=== PATIENT | female | born 1980 | race Caucasian/White ===

== ENCOUNTER 2016-10-24 10:00 | Emergency (ER) | payer BC ==
[~2016-10-24] VITALS: Ht 167.6 cm; Wt 96.6 kg
[2016-10-24 10:07] VITALS: BP 144/76
[2016-10-24] MEDS ORDERED: LOSA25TA8 (10:12)
[2016-10-24] MEDS ORDERED: PROA1AER PO (10:12)
[2016-10-24] MEDS ORDERED: FLUT1SPR2 (10:12)
[2016-10-24] MEDS ORDERED: SERT50TA PO (10:12)
[2016-10-24] MEDS ORDERED: ADV100INH INH (10:12)
[2016-10-24] MEDS ORDERED: MONT10TA2 PO (10:12)
== END 2016-10-24 11:23 | disposition left against medical advice (07) ==
LOC: M ED 11:14
DX: J45.901 Unspecified asthma with (acute) exacerbation (principal); Z53.21 Procedure and treatment not carried out due to patient leaving prior to being seen by health care provider

== ENCOUNTER → 2016-11-04 | Outpatient (REF) | payer BC ==
[~2016-11-04] MED LIST: ADV100INH INH; FLUT1SPR2; LOSA25TA8; MONT10TA2 PO; PROA1AER PO; SERT50TA PO
== END ==
LOC: M LAB REF 12:38
PROVIDERS: ATTEND Physician Assistant
DX: J02.9 Acute pharyngitis, unspecified (principal)

== ENCOUNTER 2016-11-15 10:27 | Emergency (ER) | payer BC ==
[~2016-11-15] VITALS: Ht 167.6 cm; Wt 91.2 kg
[2016-11-15 10:28] VITALS: BP 168/110
[2016-11-15] MEDS ORDERED: AUGM875T27 PO (10:39)
[2016-11-15] MEDS ORDERED: MAGN500C PO (10:39)
[2016-11-15 11:52] LABS: BASO # 0.1 K/mm3 (0.0-0.2); BASO % 0.4 % (0.0-1.0); EOS # 0.2 K/mm3 (0.0-0.50); EOS % 1.4 % (0.0-3.0); LARGE UNSTAINED CELL # 0.2 K/mm3 (0.0-0.4); LARGE UNSTAINED CELL % 1.6 % (0.0-4.0); LYMPH # 2.5 K/mm3 (1.5-4.5); LYMPH % 15.2 % (24.0-44.0); MEAN CORPUSCULAR HEMOGLOBIN 28.9 pg (27.0-33.0); MEAN CORPUSCULAR HGB CONC 33.3 g/dl (32.0-36.5); MEAN CORPUSCULAR VOLUME 86.8 fl (80.0-96.0); MONO # 0.8 K/mm3 (0.0-0.8); MONO % 5.4 % (0.0-5.0); NEUTROPHILS # 11.4 K/mm3 (1.8-7.7); NEUTROPHILS % 76.1 % (36.0-66.0); PLATELET COUNT, AUTOMATED 327 k/mm3 (150-450); WHITE BLOOD COUNT 14.1 K/mm3 (4.0-10.0)
[2016-11-15 12:09] LABS: ANION GAP 8 MEQ/L (8-16); BLOOD UREA NITROGEN 6 MG/DL (7-18); CARBON DIOXIDE LEVEL 26 MEQ/L (21-32); CHLORIDE LEVEL 104 MEQ/L (98-107); CREATININE FOR GFR 0.74 MG/DL (0.55-1.02); GLOMERULAR FILTRATION RATE > 60.0 (>60); GLUCOSE, FASTING 116 MG/DL (70-105); SODIUM LEVEL 138 MEQ/L (136-145)
[2016-11-15 12:15] LABS: HCG, SERUM QUANTITATIVE < 1.0 MIU/ML
--- NOTE | 2016-11-15 12:21 | REP ---
Clinical: Chest pain . Comparison: 06/14/2011 . Technique: PA and lateral. Findings: The mediastinum and cardiac silhouette are normal. The lung gay are clear and without acute consolidation, effusion, or pneumothorax. The skeletal structures are intact and normal. Impression: 1. No acute cardiopulmonary process. Signed by Jared Germain MD 11/15/2016 12:12 P
--- NOTE | 2016-11-15 16:27 | ECGEPIP ---
Stationary ECG Study [facility] - ED Test Date: 2016-11-15 Pat Name: DIOGENES GONZALEZ Department: Room: - Gender: F Cardiovascular Disease Specialist: fidencio : 1980 Requested By: ALPHONSE Morin PA-C Order Number: [id number] Reading MD: Compa Kong Measurements Intervals [place] Rate: 95 P: 43 MT: 116 QRS: 21 QRSD: 85 T: 37 QT: 339 QTc: 428 Interpretive Statements SINUS RHYTHM WITH SHORT MT INTERVAL POSSIBLE LEFT ATRIAL ENLARGEMENT NO PRIORS Electronically Signed On 11-15-2016 16:26:47 EDT by Compa Kong
== END 2016-11-15 12:53 | disposition home or self-care (01) ==
LOC: M ED 11:25
DX: B37.0 Candidal stomatitis (principal); R07.9 Chest pain, unspecified; I10 Essential (primary) hypertension; J45.909 Unspecified asthma, uncomplicated; F41.9 Anxiety disorder, unspecified; F17.200 Nicotine dependence, unspecified, uncomplicated; Z82.49 Family history of ischemic heart disease and other diseases of the circulatory system; Z79.899 Other long term (current) drug therapy; Z88.1 Allergy status to other antibiotic agents

== ENCOUNTER → 2017-05-06 | Outpatient (CLI) | payer BC ==
[~2017-05-06] MED LIST changes: +AUGM875T28 PO; +MAGN500C PO; -PROA1AER PO; +PROAAER10 PO
--- NOTE | 2017-05-08 15:56 | SLEEPHOME ---
DATE OF PROCEDURE: 05/06/2017 ORDERED BY: Chelsea Koenig. Diagnostic home sleep testing was performed due to concern for the obstructive sleep apnea syndrome in this patient with a history of excessive somnolence and nonrestorative sleep. For testing a NOX-T3 respiratory monitoring device was used Continuous record was made of pulse, oxygen saturation, airflow, chest and abdominal strain and body position. 10 hours and 16 minutes of data were reviewed. Of these, 8 hours and 3 minutes were marked as time in bed. During the interval marked time in bed there were 95 respiratory events were identified of 10 seconds in duration or greater for a respiratory event index of 11.8. The events were primary obstructive. Baseline pulse rate was 71. Pulse rate range 59 to 100. Baseline saturation was 94%. Lowest oxygen saturation 82%. Testing was performed in both the supine and non-supine positions. IMPRESSION: Abnormal home sleep testing with repetitive respiratory events and oxygen desaturations to 82% with a respiratory event index of 11.8 is consistent with the obstructive sleep apnea syndrome. RECOMMENDATIONS: The patient should be encouraged to undergo formal sleep evaluation and in laboratory pressure titration.
== END ==
LOC: M SLEEP HO 08:01
PROVIDERS: ATTEND Nurse Practitioner Adult Health
DX: G47.30 Sleep apnea, unspecified (principal)

== ENCOUNTER → 2018-05-06 | Outpatient (REF) | payer BC | LOC: M LAB REF 19:04 | DX: D23.11 Other benign neoplasm of skin of right eyelid, including canthus (principal) | CPT/HCPCS: 88305 ==

== ENCOUNTER → 2021-03-23 | Outpatient (REF) | payer BC ==
[~2021-03-23] MED LIST changes: +ATOR1TAB19 PO; +BREO1INH3 INH; +CLIN1GEL22 TOP; +IBUP200C25 PO; +LOSA25TA13; -LOSA25TA8; +MAGN500C2 PO; -MONT10TA2 PO; +MONT10TA97 PO; +PARO20TA3 PO; +SERT-141 PO; -SERT50TA PO; +VALS40TA9 PO
== END ==
LOC: M LAB REF 14:37
PROVIDERS: ATTEND Surgery
DX: D23.61 Other benign neoplasm of skin of right upper limb, including shoulder (principal); D23.5 Other benign neoplasm of skin of trunk

== ENCOUNTER → 2021-04-19 | Outpatient (REF) | payer BC ==
[~2021-04-19] MED LIST changes: -LOSA25TA13; +LOSA25TA14; +MONT10TA10 PO; -MONT10TA97 PO
== END ==
LOC: M LAB REF 19:12
PROVIDERS: ATTEND Surgery
DX: D48.5 Neoplasm of uncertain behavior of skin (principal); D17.0 Benign lipomatous neoplasm of skin and subcutaneous tissue of head, face and neck

== ENCOUNTER → 2021-05-28 | Outpatient (CLI) | payer BC ==
--- NOTE | 2021-05-30 14:49 | REP ---
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 Non corrected whole-body images were also reviewed. FINDINGS: There is no evidence of abnormal hypermetabolic activity seen in the neck, chest, abdomen, or pelvis. Additionally, no abnormal hypermetabolism is seen in the skin. IMPRESSION: No discernible abnormal hypermetabolic activity is identified. <Electronically signed by Kedar Joyner > 05/30/21 [id number]
== END ==
LOC: M PLARAD 13:06
DX: D21.9 Benign neoplasm of connective and other soft tissue, unspecified (principal)
CPT/HCPCS: 78816; A9552

== ENCOUNTER → 2022-07-16 | Outpatient (CLI) | payer BC ==
[~2022-07-16] MED LIST changes: +LOSA25TA13; -LOSA25TA14; -MONT10TA10 PO; +MONT10TA97 PO
== END ==
LOC: M WHC 08:53
PROVIDERS: ATTEND Obstetrics & Gynecology
DX: Z12.31 Encounter for screening mammogram for malignant neoplasm of breast (principal); N63.11 Unspecified lump in the right breast, upper outer quadrant; N63.21 Unspecified lump in the left breast, upper outer quadrant

== ENCOUNTER → 2022-07-16 | Outpatient (CLI) | payer BC | LOC: M WHC 08:51 | PROVIDERS: ATTEND Surgery | DX: R22.1 Localized swelling, mass and lump, neck (principal) ==

== ENCOUNTER → 2022-08-14 | Outpatient (CLI) | payer BC | LOC: M WHC 09:49 | PROVIDERS: ATTEND Obstetrics & Gynecology | DX: R92.2 Inconclusive mammogram (principal); N60.11 Diffuse cystic mastopathy of right breast; N63.24 Unspecified lump in the left breast, lower inner quadrant | CPT/HCPCS: 76642; 77066; G0279 ==

== ENCOUNTER → 2022-12-19 | Outpatient (CLI) | payer BC | LOC: M WUC 09:35 | PROVIDERS: ATTEND Student in an Organized Health Care Education/Training Program | DX: M25.522 Pain in left elbow (principal); M25.532 Pain in left wrist; M25.422 Effusion, left elbow; S52.122A Displaced fracture of head of left radius, initial encounter for closed fracture; X58.XXXA Exposure to other specified factors, initial encounter; Y92.9 Unspecified place or not applicable; Y93.9 Activity, unspecified; Y99.9 Unspecified external cause status ==

== ENCOUNTER → 2023-01-16 | Outpatient (CLI) | payer BC | LOC: M RAD 11:27 | PROVIDERS: ATTEND Physician Assistant | DX: S52.125D Nondisplaced fracture of head of left radius, subsequent encounter for closed fracture with routine healing (principal) ==

== ENCOUNTER → 2023-01-27 | Outpatient (CLI) | payer BC | LOC: M WHC 12:55 | PROVIDERS: ATTEND Advanced Practice Midwife | DX: R92.2 Inconclusive mammogram (principal); N63.41 Unspecified lump in right breast, subareolar | CPT/HCPCS: 76642; 77065; G0279 ==

== ENCOUNTER → 2023-02-06 | Outpatient (REF) | payer BC | LOC: M LAB REF 16:26 | PROVIDERS: ATTEND Internal Medicine | DX: Z11.59 Encounter for screening for other viral diseases (principal) ==

== ENCOUNTER → 2023-02-21 | Outpatient (REF) | payer BC | LOC: M LAB REF 12:14 | PROVIDERS: ATTEND Internal Medicine | DX: R53.83 Other fatigue (principal); M79.10 Myalgia, unspecified site; Z11.59 Encounter for screening for other viral diseases ==

== ENCOUNTER → 2023-08-08 | Outpatient (CLI) | payer BC, SELFPAY | LOC: M WHC 13:56 | PROVIDERS: ATTEND Obstetrics & Gynecology | DX: Z12.31 Encounter for screening mammogram for malignant neoplasm of breast (principal); Z53.9 Procedure and treatment not carried out, unspecified reason ==

== ENCOUNTER → 2023-09-22 | Outpatient (CLI) | payer BC | LOC: M WHC 13:38 | PROVIDERS: ATTEND Obstetrics & Gynecology | DX: Z12.31 Encounter for screening mammogram for malignant neoplasm of breast (principal) ==

== ENCOUNTER 2023-11-17 12:42 | Observation (INO) | payer BC ==
[~2023-11-17] VITALS: Ht 170.2 cm; Wt 78.6 kg
[2023-11-17] MEDS ORDERED: METO1TAB32 PO (13:13)
[2023-11-17] MEDS ORDERED: PRAS10TA2 PO (13:13)
[2023-11-17] MEDS ORDERED: NITR0.4S14 SL (13:13)
[2023-11-17] MEDS ORDERED: ATOR80TA59 PO (13:13)
[2023-11-17] MEDS ORDERED: ASPI-226 PO (13:13)
[2023-11-17] MEDS ORDERED: FLUT1BLS5 INH (13:13)
[2023-11-17 13:51] LABS: BASO % 0.4 % (0.0-1.0); EOS # 0.2 10^3/uL (0.0-0.5); EOS % 1.6 % (0.0-3.0); HEMATOCRIT 39.2 % (36.0-47.0); LYMPH # 2.2 10^3/uL (1.5-5.0); LYMPH % 23.1 % (24.0-44.0); MEAN CORPUSCULAR HGB CONC 33.2 g/dl (32.0-36.5); MEAN CORPUSCULAR VOLUME 93.6 fl (80.0-96.0); MONO % 10.3 % (2.0-8.0); NEUTROPHILS # 6.1 10^3/uL (1.5-8.5); NEUTROPHILS % 64.2 % (36.0-66.0); PLATELET COUNT, AUTOMATED 282 10^3/uL (150-450); RED BLOOD COUNT 4.19 10^6/uL (4.00-5.40); WHITE BLOOD COUNT 9.6 10^3/uL (4.0-10.0)
[2023-11-17 14:06] LABS: D-DIMER QUANT 1.49 ug/mL (<0.5); INR 1.06; PROTHROMBIN TIME 13.5 SECONDS (12.5-14.5)
[2023-11-17 14:22] LABS: LIPASE 31 U/L (12-53)
[2023-11-17 14:25] LABS: ALBUMIN 3.8 G/DL (3.2-5.2); ALKALINE PHOSPHATASE 84 U/L (46-116); ALT/SGPT 22 U/L (7.0-40); AST/SGOT 12 U/L (<34); BILIRUBIN,DIRECT 0.2 MG/DL (<0.4); BILIRUBIN,TOTAL 0.3 MG/DL (0.3-1.2); BLOOD UREA NITROGEN 11 MG/DL (9-23); CALCIUM LEVEL 9.3 MG/DL (8.5-10.1); CARBON DIOXIDE LEVEL 28 MMOL/L (20-31); CHLORIDE LEVEL 108 MMOL/L (98-107); CK-MB VALUE MASS < 1.0 NG/ML (<3.6); CREATININE FOR GFR 0.67 MG/DL (0.55-1.30); GLOMERULAR FILTRATION RATE > 60.0 (>58); GLUCOSE, FASTING 96 MG/DL (60-100); POTASSIUM SERUM 3.9 MMOL/L (3.5-5.1); SODIUM LEVEL 140 MMOL/L (136-145); TOTAL PROTEIN 6.8 G/DL (5.7-8.2)
[2023-11-17] MEDS ORDERED: ISOVUE-370 76% 100ML VIAL As Ordered ONE (14:26)
[2023-11-17 14:28] LABS: CPK CREATINE PHOSPHOKINASE 52 U/L (34-145); MB/CK RELATIVE INDEX 1.92 (< OR =4)
[2023-11-17] MEDS: NS 1,000 ML IV ONE (14:51)
[2023-11-17 15:38] LABS: CK-MB VALUE MASS < 1.0 NG/ML (<3.6)
[2023-11-17 15:41] LABS: CPK CREATINE PHOSPHOKINASE 53 U/L (34-145); MB/CK RELATIVE INDEX 1.88 (< OR =4)
[2023-11-17] MEDS ORDERED: NICO14DI6 TD (17:57)
[2023-11-17] MEDS ORDERED: HOME MED LIST COMPLETE! XX SCH (18:00)
[2023-11-17] MEDS ORDERED: NITROGLYCERIN 0.4MG SUBL TABLET SL PRN (18:20)
[2023-11-17] MEDS: ADVAIR HFA 115/21MCG INHALER INH SCH (19:49)
[2023-11-17] MEDS: MONTELUKAST 10 MG TAB PO SCH (21:27)
[2023-11-17 21:42] VITALS: BP 128/80; TEMP 98.3; O2SAT 99
[2023-11-18 04:00] VITALS: BP 131/63; TEMP 97.8; O2SAT 99
[2023-11-18 05:40] LABS: HEMATOCRIT 35.6 % (36.0-47.0); HEMOGLOBIN 11.7 g/dl (12.0-15.5); MEAN CORPUSCULAR HEMOGLOBIN 31.1 pg (27.0-33.0); MEAN CORPUSCULAR HGB CONC 32.9 g/dl (32.0-36.5); MEAN CORPUSCULAR VOLUME 94.7 fl (80.0-96.0); PLATELET COUNT, AUTOMATED 245 10^3/uL (150-450); RED BLOOD COUNT 3.76 10^6/uL (4.00-5.40); WHITE BLOOD COUNT 8.6 10^3/uL (4.0-10.0)
[2023-11-18 06:15] LABS: CPK CREATINE PHOSPHOKINASE 78 U/L (34-145)
[2023-11-18 06:23] LABS: ALBUMIN 3.1 G/DL (3.2-5.2); ALKALINE PHOSPHATASE 72 U/L (46-116); ALT/SGPT 17 U/L (7.0-40); AST/SGOT 14 U/L (<34); BILIRUBIN,TOTAL 0.2 MG/DL (0.3-1.2); BLOOD UREA NITROGEN 9 MG/DL (9-23); CALCIUM LEVEL 8.3 MG/DL (8.5-10.1); CARBON DIOXIDE LEVEL 28 MMOL/L (20-31); CHLORIDE LEVEL 108 MMOL/L (98-107); CK-MB VALUE MASS < 1.0 NG/ML (<3.6); CREATININE FOR GFR 0.69 MG/DL (0.55-1.30); GLOMERULAR FILTRATION RATE > 60.0 (>58); GLUCOSE, FASTING 90 MG/DL (60-100); MB/CK RELATIVE INDEX 1.28 (< OR =4); POTASSIUM SERUM 3.6 MMOL/L (3.5-5.1); SODIUM LEVEL 142 MMOL/L (136-145); TOTAL PROTEIN 5.7 G/DL (5.7-8.2)
[2023-11-18 08:00] VITALS: BP 138/62; TEMP 97
[2023-11-18] MEDS: NICOTINE 14 MG/24 HR TRANSDERMAL TD SCH (09:28)
[2023-11-18] MEDS: ACETAMINOPHEN TAB 650MG DOSE (2X325MG) PO PRN (09:29)
[2023-11-18] MEDS: ASPIRIN 81MG ENTERIC TABLET PO SCH (09:29)
[2023-11-18] MEDS: ATORVASTATIN 20 MG TAB PO SCH (09:29)
[2023-11-18 09:30] VITALS: BP 138/62
[2023-11-18] MEDS: VALSARTAN 40MG TABLET (DIOVAN) PO SCH (09:30)
[2023-11-18] MEDS: METOPROLOL SUCC *XL* 12.5MG PER 1/2 TAB (TopROL *XL*) PO SCH (09:30)
[2023-11-18] MEDS: PRASUGREL 10 MG PO SCH (10:02)
[2023-11-18 19:52] VITALS: BP 127/60; TEMP 98.3; O2SAT 98
[2023-11-18 20:54] VITALS: BP 104/53; TEMP 97.6; O2SAT 97
[2023-11-19 00:15] VITALS: BP 108/54; TEMP 97.7; O2SAT 100
[2023-11-19 03:44] VITALS: BP 122/69; TEMP 97.2; O2SAT 96
[2023-11-19 08:00] VITALS: BP 129/56; TEMP 97.4; O2SAT 99
== END 2023-11-19 12:09 | disposition home or self-care (01) ==
LOC: M ED 14:04 → M ED INP 14:05 → M PCU 21:39
PROVIDERS: ADMIT Internal Medicine; ATTEND Internal Medicine
DX: R07.89 Other chest pain (principal); I25.10 Atherosclerotic heart disease of native coronary artery without angina pectoris; I25.2 Old myocardial infarction; Z98.61 Coronary angioplasty status; I10 Essential (primary) hypertension; E78.5 Hyperlipidemia, unspecified; J45.909 Unspecified asthma, uncomplicated; G47.33 Obstructive sleep apnea (adult) (pediatric); Z87.891 Personal history of nicotine dependence; Z86.79 Personal history of other diseases of the circulatory system; Z79.01 Long term (current) use of anticoagulants; Z79.82 Long term (current) use of aspirin; Z88.1 Allergy status to other antibiotic agents; Z79.899 Other long term (current) drug therapy
CPT/HCPCS: 36415; 71045; 71275; 80047; 80048; 80053; 80076; 82550; 82553; 83690; 84484; 85025; 85027; 85379; 85610; 87635; 93005; 93041; 93306; 93971; 94640; 94760; 96374; 99285; Q9967

== ENCOUNTER → 2023-11-26 | Outpatient (REF) | payer BC ==
[~2023-11-26] MED LIST changes: +ASPI-226 PO; +ATOR80TA59 PO; +FLUT1BLS5 INH; +METO1TAB32 PO; +NICO14DI6 TD; +NITR0.4S14 SL; +PRAS10TA2 PO
== END ==
LOC: M LAB REF 16:22
PROVIDERS: ATTEND Internal Medicine
DX: J02.0 Streptococcal pharyngitis (principal)

== ENCOUNTER → 2023-12-12 | Outpatient (CLI) | payer BC ==
[2023-12-12 10:18] LABS: BASO % 0.2 % (0.0-1.0); EOS # 0.2 10^3/uL (0.0-0.5); EOS % 2.1 % (0.0-3.0); HEMATOCRIT 37.9 % (36.0-47.0); HEMOGLOBIN 12.3 g/dl (12.0-15.5); LYMPH # 1.6 10^3/uL (1.5-5.0); LYMPH % 19.9 % (24.0-44.0); MEAN CORPUSCULAR HEMOGLOBIN 30.8 pg (27.0-33.0); MEAN CORPUSCULAR HGB CONC 32.5 g/dl (32.0-36.5); MEAN CORPUSCULAR VOLUME 94.8 fl (80.0-96.0); MONO % 11.7 % (2.0-8.0); NEUTROPHILS # 5.4 10^3/uL (1.5-8.5); NEUTROPHILS % 65.7 % (36.0-66.0); PLATELET COUNT, AUTOMATED 292 10^3/uL (150-450); WHITE BLOOD COUNT 8.2 10^3/uL (4.0-10.0)
[2023-12-12 10:31] LABS: INR 1.02; PARTIAL THROMBOPLASTIN TIME 34.2 SECONDS (24.8-34.2); PROTHROMBIN TIME 13.1 SECONDS (12.5-14.5)
[2023-12-12 10:44] LABS: BLOOD UREA NITROGEN 8 MG/DL (9-23); CALCIUM LEVEL 9.5 MG/DL (8.5-10.1); CARBON DIOXIDE LEVEL 29 MMOL/L (20-31); CHLORIDE LEVEL 110 MMOL/L (98-107); GLOMERULAR FILTRATION RATE > 60.0 (>58); GLUCOSE, FASTING 70 MG/DL (60-100); POTASSIUM SERUM 4.1 MMOL/L (3.5-5.1); SODIUM LEVEL 141 MMOL/L (136-145)
== END ==
LOC: M LAB 09:30
PROVIDERS: ATTEND Internal Medicine
DX: Z01.812 Encounter for preprocedural laboratory examination (principal)

== ENCOUNTER 2023-12-20 13:05 | Emergency (ER) | payer BC ==
[~2023-12-20] VITALS: Ht 167.6 cm; Wt 80.1 kg
[2023-12-20 13:50] LABS: BASO % 0.2 % (0.0-1.0); EOS # 0.1 10^3/uL (0.0-0.5); EOS % 1.2 % (0.0-3.0); HEMATOCRIT 38.5 % (36.0-47.0); HEMOGLOBIN 12.8 g/dl (12.0-15.5); LYMPH # 2.1 10^3/uL (1.5-5.0); LYMPH % 20.8 % (24.0-44.0); MEAN CORPUSCULAR HEMOGLOBIN 30.8 pg (27.0-33.0); MEAN CORPUSCULAR HGB CONC 33.2 g/dl (32.0-36.5); MEAN CORPUSCULAR VOLUME 92.8 fl (80.0-96.0); MONO % 9.5 % (2.0-8.0); NEUTROPHILS # 6.9 10^3/uL (1.5-8.5); PLATELET COUNT, AUTOMATED 292 10^3/uL (150-450); RED BLOOD COUNT 4.15 10^6/uL (4.00-5.40); WHITE BLOOD COUNT 10.1 10^3/uL (4.0-10.0)
[2023-12-20 14:10] LABS: CK-MB VALUE MASS < 1.0 NG/ML (<3.6)
[2023-12-20 14:12] LABS: CPK CREATINE PHOSPHOKINASE 50 U/L (34-145)
[2023-12-20 14:14] LABS: ALBUMIN 3.8 G/DL (3.2-5.2); ALKALINE PHOSPHATASE 92 U/L (46-116); ALT/SGPT 19 U/L (7.0-40); AST/SGOT 12 U/L (<34); BILIRUBIN,DIRECT < 0.1 MG/DL (<0.4); BILIRUBIN,TOTAL 0.3 MG/DL (0.3-1.2); BLOOD UREA NITROGEN 7 MG/DL (9-23); CARBON DIOXIDE LEVEL 26 MMOL/L (20-31); CHLORIDE LEVEL 109 MMOL/L (98-107); CREATININE FOR GFR 0.64 MG/DL (0.55-1.30); GLOMERULAR FILTRATION RATE > 60.0 (>58); GLUCOSE, FASTING 104 MG/DL (60-100); POTASSIUM SERUM 3.9 MMOL/L (3.5-5.1); SODIUM LEVEL 143 MMOL/L (136-145); TOTAL PROTEIN 6.7 G/DL (5.7-8.2)
[2023-12-20 14:55] LABS: MAGNESIUM LEVEL 1.8 MG/DL (1.8-2.4)
[2023-12-20 15:00] LABS: THYROID STIMULATING HORMONE 0.355 uIU/ML (0.55-4.78)
[2023-12-20 15:10] LABS: CK-MB VALUE MASS < 1.0 NG/ML (<3.6)
[2023-12-20 15:11] LABS: CPK CREATINE PHOSPHOKINASE 45 U/L (34-145); MB/CK RELATIVE INDEX 2.22 (< OR =4)
[2023-12-20 15:14] LABS: HCG, SERUM QUALITATIVE NEGATIVE (NEGATIVE)
[2023-12-20] MEDS ORDERED: ISOVUE-370 76% 100ML VIAL As Ordered ONE (15:45)
[2023-12-20] MEDS ORDERED: HOME MED LIST COMPLETE! XX SCH (16:50)
[2023-12-20] MEDS ORDERED: PRED20TA PO (17:17)
[2023-12-20] MEDS: predniSONE 20 MG TAB PO ONE (17:29)
[2023-12-20 18:15] VITALS: BP 118/69; TEMP 97.5; O2SAT 99
== END 2023-12-20 18:33 | disposition home or self-care (01) ==
LOC: M ED 13:05
DX: R07.9 Chest pain, unspecified (principal); I10 Essential (primary) hypertension; E78.5 Hyperlipidemia, unspecified; I25.2 Old myocardial infarction; G47.33 Obstructive sleep apnea (adult) (pediatric); F17.200 Nicotine dependence, unspecified, uncomplicated; Z86.79 Personal history of other diseases of the circulatory system; Z88.1 Allergy status to other antibiotic agents; Z79.82 Long term (current) use of aspirin; Z79.02 Long term (current) use of antithrombotics/antiplatelets; Z79.52 Long term (current) use of systemic steroids; Z79.899 Other long term (current) drug therapy
CPT/HCPCS: 36415; 71045; 71275; 80048; 80076; 82550; 82553; 83735; 84443; 84484; 84703; 85025; 93005; 93041; 94760; 99285; J7512; Q9967

== ENCOUNTER → 2024-02-17 | Outpatient (CLI) | payer BC ==
[~2024-02-17] MED LIST changes: +PRED20TA PO
[2024-02-17 10:46] LABS: BASO % 0.2 % (0.0-1.0); EOS # 0.2 10^3/uL (0.0-0.5); EOS % 1.8 % (0.0-3.0); HEMATOCRIT 38.7 % (36.0-47.0); LYMPH # 2.2 10^3/uL (1.5-5.0); MEAN CORPUSCULAR HEMOGLOBIN 29.4 pg (27.0-33.0); MEAN CORPUSCULAR VOLUME 94.9 fl (80.0-96.0); MONO % 12.3 % (2.0-8.0); NEUTROPHILS # 4.8 10^3/uL (1.5-8.5); NEUTROPHILS % 58.3 % (36.0-66.0); PLATELET COUNT, AUTOMATED 275 10^3/uL (150-450); RED BLOOD COUNT 4.08 10^6/uL (4.00-5.40); WHITE BLOOD COUNT 8.2 10^3/uL (4.0-10.0)
[2024-02-17 11:13] LABS: THYROID STIMULATING HORMONE 0.607 uIU/ML (0.55-4.78)
[2024-02-17 11:14] LABS: CPK CREATINE PHOSPHOKINASE 52 U/L (34-145)
[2024-02-17 11:15] LABS: ALBUMIN 3.5 G/DL (3.2-5.2); ALKALINE PHOSPHATASE 78 U/L (46-116); ALT/SGPT 15 U/L (7.0-40); AST/SGOT < 8 U/L (<34); BILIRUBIN,TOTAL 0.5 MG/DL (0.3-1.2); BLOOD UREA NITROGEN 9 MG/DL (9-23); CALCIUM LEVEL 8.6 MG/DL (8.5-10.1); CARBON DIOXIDE LEVEL 29 MMOL/L (20-31); CHLORIDE LEVEL 109 MMOL/L (98-107); CHOLESTEROL LEVEL 115 MG/DL (<200); CHOLESTEROL RISK RATIO 3.28 (<5); CREATININE FOR GFR 0.74 MG/DL (0.55-1.30); GLOMERULAR FILTRATION RATE > 60.0 (>58); GLUCOSE, FASTING 95 MG/DL (60-100); LDL CHOLESTEROL 54.2 MG/DL (<100); POTASSIUM SERUM 4.1 MMOL/L (3.5-5.1); SODIUM LEVEL 142 MMOL/L (136-145); TOTAL PROTEIN 6.2 G/DL (5.7-8.2); TRIGLYCERIDES LEVEL 129 MG/DL (<150)
== END ==
LOC: M WUC 08:07
PROVIDERS: ATTEND Internal Medicine Cardiovascular Disease
DX: R07.2 Precordial pain (principal); J45.20 Mild intermittent asthma, uncomplicated; I10 Essential (primary) hypertension; I21.4 Non-ST elevation (NSTEMI) myocardial infarction; I25.10 Atherosclerotic heart disease of native coronary artery without angina pectoris; G47.33 Obstructive sleep apnea (adult) (pediatric); Z87.891 Personal history of nicotine dependence

== ENCOUNTER → 2024-05-21 | Outpatient (CLI) | payer BC ==
[2024-05-21 10:12] LABS: BASO % 0.3 % (0.0-1.0); EOS # 0.1 10^3/uL (0.0-0.5); EOS % 1.7 % (0.0-3.0); HEMATOCRIT 38.1 % (36.0-47.0); HEMOGLOBIN 12.2 g/dl (12.0-15.5); LYMPH % 34.5 % (24.0-44.0); MEAN CORPUSCULAR HEMOGLOBIN 29.3 pg (27.0-33.0); MEAN CORPUSCULAR VOLUME 91.4 fl (80.0-96.0); MONO # 0.7 10^3/uL (0.0-0.8); MONO % 12.3 % (2.0-8.0); NEUTROPHILS # 2.9 10^3/uL (1.5-8.5); PLATELET COUNT, AUTOMATED 291 10^3/uL (150-450); RED BLOOD COUNT 4.17 10^6/uL (4.00-5.40); WHITE BLOOD COUNT 5.8 10^3/uL (4.0-10.0)
[2024-05-21 10:24] LABS: INR 1.05; PARTIAL THROMBOPLASTIN TIME 33.3 SECONDS (24.8-34.2); PROTHROMBIN TIME 13.4 SECONDS (12.5-14.5)
[2024-05-21 10:36] LABS: BLOOD UREA NITROGEN 11 MG/DL (9-23); CALCIUM LEVEL 9.5 MG/DL (8.5-10.1); CARBON DIOXIDE LEVEL 30 MMOL/L (20-31); CHLORIDE LEVEL 107 MMOL/L (98-107); CREATININE FOR GFR 0.83 MG/DL (0.55-1.30); GLOMERULAR FILTRATION RATE > 60.0 (>58); GLUCOSE, FASTING 69 MG/DL (60-100); POTASSIUM SERUM 4.1 MMOL/L (3.5-5.1); SODIUM LEVEL 141 MMOL/L (136-145)
== END ==
LOC: M LAB 08:53
PROVIDERS: ATTEND Internal Medicine
DX: Z01.812 Encounter for preprocedural laboratory examination (principal)

== ENCOUNTER → 2024-07-28 | Outpatient (CLI) | payer BC ==
[~2024-07-28] MED LIST changes: -ADV100INH INH; +ADVA1AER8 INH
[2024-07-28 10:00] LABS: BASO % 0.4 % (0.0-1.0); EOS # 0.1 10^3/uL (0.0-0.5); EOS % 1.4 % (0.0-3.0); HEMATOCRIT 37.8 % (36.0-47.0); LYMPH # 2.1 10^3/uL (1.5-5.0); MEAN CORPUSCULAR HEMOGLOBIN 28.7 pg (27.0-33.0); MEAN CORPUSCULAR HGB CONC 31.7 g/dl (32.0-36.5); MEAN CORPUSCULAR VOLUME 90.4 fl (80.0-96.0); MONO % 11.9 % (2.0-8.0); NEUTROPHILS # 5.2 10^3/uL (1.5-8.5); NEUTROPHILS % 61.2 % (36.0-66.0); PLATELET COUNT, AUTOMATED 317 10^3/uL (150-450); RED BLOOD COUNT 4.18 10^6/uL (4.00-5.40); WHITE BLOOD COUNT 8.5 10^3/uL (4.0-10.0)
[2024-07-28 10:14] LABS: INR 0.96; PARTIAL THROMBOPLASTIN TIME 31.5 SECONDS (24.8-34.2); PROTHROMBIN TIME 13.1 SECONDS (12.5-14.5)
[2024-07-28 10:28] LABS: BLOOD UREA NITROGEN 13 MG/DL (9-23); CALCIUM LEVEL 9.6 MG/DL (8.5-10.1); CARBON DIOXIDE LEVEL 30 MMOL/L (20-31); CHLORIDE LEVEL 104 MMOL/L (98-107); CREATININE FOR GFR 0.75 MG/DL (0.55-1.30); GLOMERULAR FILTRATION RATE > 60.0 (>58); GLUCOSE, FASTING 89 MG/DL (60-100); SODIUM LEVEL 139 MMOL/L (136-145)
== END ==
LOC: M LAB 09:34
PROVIDERS: ATTEND Internal Medicine
DX: Z01.812 Encounter for preprocedural laboratory examination (principal)

== ENCOUNTER → 2024-09-17 | Outpatient (CLI) | payer BC | LOC: M WHC 11:20 | PROVIDERS: ATTEND Obstetrics & Gynecology | DX: Z12.31 Encounter for screening mammogram for malignant neoplasm of breast (principal); R92.333 Mammographic heterogeneous density, bilateral breasts ==

== ENCOUNTER → 2024-11-04 | Outpatient (CLI) | payer BC ==
[2024-11-04 14:48] LABS: BASO % 0.6 % (0.0-1.0); EOS # 0.1 10^3/uL (0.0-0.5); EOS % 1.4 % (0.0-3.0); HEMATOCRIT 35.2 % (36.0-47.0); HEMOGLOBIN 10.3 g/dl (12.0-15.5); LYMPH % 29.3 % (24.0-44.0); MEAN CORPUSCULAR HEMOGLOBIN 25.2 pg (27.0-33.0); MEAN CORPUSCULAR HGB CONC 29.3 g/dl (32.0-36.5); MEAN CORPUSCULAR VOLUME 86.3 fl (80.0-96.0); MONO # 0.9 10^3/uL (0.0-0.8); MONO % 13.1 % (2.0-8.0); NEUTROPHILS # 3.9 10^3/uL (1.5-8.5); NEUTROPHILS % 55.3 % (36.0-66.0); PLATELET COUNT, AUTOMATED 365 10^3/uL (150-450); RED BLOOD COUNT 4.08 10^6/uL (4.00-5.40)
[2024-11-04 15:18] LABS: FREE T4 0.99 NG/DL (0.89-1.76); THYROID STIMULATING HORMONE 0.653 uIU/ML (0.55-4.78)
[2024-11-04 15:19] LABS: FOLLICLE STIMULATING HORMONE 9.8 mIU/ML; LUTEINIZING HORMONE 10.1 mIU/ML
== END ==
LOC: M WUC 09:31
PROVIDERS: ATTEND Obstetrics & Gynecology
DX: N92.1 Excessive and frequent menstruation with irregular cycle (principal)

== ENCOUNTER → 2024-11-08 | Outpatient (CLI) | payer BC | LOC: M RAD 08:46 | PROVIDERS: ATTEND Obstetrics & Gynecology | DX: N92.1 Excessive and frequent menstruation with irregular cycle (principal) ==

== ENCOUNTER → 2024-12-27 | Outpatient (REF) | payer BC ==
[2024-12-27 18:09] LABS: C REACTIVE PROTEIN QUANTITATIV < 0.50 MG/DL (<1.0)
[2024-12-27 18:13] LABS: VITAMIN B12 LEVEL 256 PG/ML (211-911)
[2024-12-29 11:09] LABS: IRON (FE) 36 UG/DL (50-170); PERCENT SATURATION 10.4 % (13.2-45.0); TOTAL IRON BINDING CAPACITY 347 UG/DL (250-425)
[2024-12-29 11:11] LABS: FERRITIN 2.5 NG/ML (7.3-270.7)
== END ==
LOC: M LAB REF 12:12
PROVIDERS: ATTEND Internal Medicine
DX: N39.0 Urinary tract infection, site not specified (principal); R10.32 Left lower quadrant pain; R53.83 Other fatigue; R20.0 Anesthesia of skin

== ENCOUNTER → 2025-01-13 | Outpatient (CLI) | payer BC ==
[~2025-01-13] MED LIST changes: +ISOVUE-370 76% 100ML VIAL ONE
== END ==
LOC: M PLAIMG 09:17
PROVIDERS: ATTEND Internal Medicine
DX: R10.32 Left lower quadrant pain (principal)
CPT/HCPCS: 74177; Q9967

== ENCOUNTER 2025-03-23 12:43 | Day surgery (SDC) | payer BC ==
[~2025-03-23] VITALS: Ht 167.6 cm; Wt 83.0 kg
[~2025-03-23 12:43] MED LIST changes: +EZET10TA21 PO; +FERR240T PO; +GNPTAB36 PO; -ISOVUE-370 76% 100ML VIAL ONE
[2025-03-23 13:38] LABS: PLATELET COUNT, AUTOMATED 268 10^3/uL (150-450)
[2025-03-23] MEDS ORDERED: dexAMETHasone 4 MG/ML 1 ML VIAL As Ordered ONE (14:03)
[2025-03-23] MEDS ORDERED: ONDANSETRON 4MG 2ML VIAL As Ordered ONE (14:03)
[2025-03-23] MEDS ORDERED: LIDOCAINE 2% 100 MG/5 ML SDV (FOR ANES.) As Ordered ONE (14:03)
[2025-03-23] MEDS ORDERED: KETOROLAC 30 MG/ML 1 ML VIAL As Ordered ONE (14:03)
[2025-03-23] MEDS ORDERED: MIDAZOLAM INJ 2 MG/2 ML VIAL As Ordered ONE (14:09)
[2025-03-23] MEDS ORDERED: ACETAMINOPHEN 1000MG/100ML IV BAG As Ordered ONE (14:56)
[2025-03-23] MEDS ORDERED: HYDROMORPHONE HCL 0.5 MG/0.5 ML SYRINGE IV PRN (15:25)
[2025-03-23] MEDS ORDERED: LR 1,000 ML IV SCH (15:25)
[2025-03-23 16:12] VITALS: BP 126/65; TEMP 97.5; O2SAT 98
== END 2025-03-23 16:15 | disposition home or self-care (01) ==
LOC: M SDC 12:43
PROVIDERS: ATTEND Obstetrics & Gynecology
DX: N84.0 Polyp of corpus uteri (principal); I10 Essential (primary) hypertension; E78.5 Hyperlipidemia, unspecified; D64.9 Anemia, unspecified; Z79.82 Long term (current) use of aspirin; Z88.1 Allergy status to other antibiotic agents; Z87.891 Personal history of nicotine dependence; Z98.61 Coronary angioplasty status; I25.2 Old myocardial infarction; J45.909 Unspecified asthma, uncomplicated; G47.33 Obstructive sleep apnea (adult) (pediatric)
CPT/HCPCS: 36415; 58563; 85027; 86850; 86900; 86901; 88305; J0131; J1100; J1885; J2250; J2405; J3010

== ENCOUNTER 2025-04-11 10:25 | Emergency (ER) | payer BC ==
[~2025-04-11] VITALS: Ht 168.9 cm; Wt 83.7 kg
[~2025-04-11 10:25] MED LIST changes: -EZET10TA21 PO; +EZET10TA57 PO; -FERR32TA PO; -HOLTER MONITOR XX
[2025-04-11 11:05] LABS: BASO # 0.0 10^3/uL (0.0-0.2); BASO % 0.5 % (0.0-1.0); EOS # 0.1 10^3/uL (0.0-0.5); EOS % 1.6 % (0.0-3.0); LYMPH # 1.7 10^3/uL (1.5-5.0); LYMPH % 20.6 % (24.0-44.0); MONO # 0.8 10^3/uL (0.0-0.8); MONO % 10.2 % (2.0-8.0); NEUTROPHILS # 5.4 10^3/uL (1.5-8.5); NEUTROPHILS % 66.7 % (36.0-66.0); PLATELET COUNT, AUTOMATED 292 10^3/uL (150-450)
[2025-04-11 11:19] LABS: INR 0.91
[2025-04-11 11:27] LABS: CK-MB VALUE MASS 1.1 NG/ML (<3.6)
[2025-04-11 11:30] LABS: ALT/SGPT 20 U/L (7.0-40); AST/SGOT 22 U/L (<34); CALCIUM LEVEL 8.6 MG/DL (8.5-10.1); CARBON DIOXIDE LEVEL 27 MMOL/L (20-31); CHLORIDE LEVEL 108 MMOL/L (98-107); CREATININE FOR GFR 0.77 MG/DL (0.55-1.30); GLOMERULAR FILTRATION RATE > 90.0 (>58); HCG, SERUM QUALITATIVE NEGATIVE (NEGATIVE); POTASSIUM SERUM 4.3 MMOL/L (3.5-5.1); SODIUM LEVEL 142 MMOL/L (136-145)
[2025-04-11 11:32] LABS: FREE T4 0.98 NG/DL (0.89-1.76)
[2025-04-11 11:39] LABS: CPK CREATINE PHOSPHOKINASE 83 U/L (34-145); MB/CK RELATIVE INDEX 1.32 (< OR =4)
[2025-04-11 12:20] LABS: MAGNESIUM LEVEL 1.7 MG/DL (1.8-2.4)
[2025-04-11] MEDS ORDERED: HOLTER MONITOR XX (12:49)
[2025-04-11] MEDS ORDERED: FERR32TA PO (12:54)
[2025-04-11] MEDS ORDERED: HOME MED LIST COMPLETE! XX SCH (12:55)
[2025-04-11 13:00] VITALS: BP 146/71; TEMP 98; O2SAT 98
== END 2025-04-11 13:10 | disposition home or self-care (01) ==
LOC: M ED 10:25
DX: R00.2 Palpitations (principal); I25.2 Old myocardial infarction; I10 Essential (primary) hypertension; E78.5 Hyperlipidemia, unspecified; J45.909 Unspecified asthma, uncomplicated; G47.33 Obstructive sleep apnea (adult) (pediatric); Z86.79 Personal history of other diseases of the circulatory system; Z88.1 Allergy status to other antibiotic agents; Z79.82 Long term (current) use of aspirin; Z79.02 Long term (current) use of antithrombotics/antiplatelets; Z79.899 Other long term (current) drug therapy

== ENCOUNTER → 2025-04-11 | Outpatient (CLI) | payer BC ==
[~2025-04-11] MED LIST changes: +FERR32TA PO; +HOLTER MONITOR XX
== END ==
LOC: M EKG 13:37
PROVIDERS: ATTEND Emergency Medicine
DX: R00.2 Palpitations (principal)

== ENCOUNTER → 2025-05-20 | Outpatient (CLI) | payer BC ==
[~2025-05-20] MED LIST changes: +FERR32TA PO; +HOLTER MONITOR XX
== END ==
LOC: M WHC 10:06
PROVIDERS: ATTEND Nurse Practitioner Family
DX: L72.0 Epidermal cyst (principal)

== ENCOUNTER → 2025-05-27 | Outpatient (REF) | payer BC ==
[2025-05-27 15:02] LABS: C REACTIVE PROTEIN QUANTITATIV 1.24 MG/DL (<1.0); IRON (FE) 31.0 UG/DL (50-170)
[2025-05-27 15:03] LABS: PERCENT SATURATION 9.7 % (13.2-45.0)
== END ==
LOC: M LAB REF 14:30
PROVIDERS: ATTEND Internal Medicine
DX: D50.9 Iron deficiency anemia, unspecified (principal); R50.9 Fever, unspecified

== ENCOUNTER → 2025-05-27 | Outpatient (REF) | payer BC ==
[2025-05-27 17:00] LABS: RSV AMPLIFICATION NEGATIVE (NEGATIVE)
== END ==
LOC: M LAB REF 14:28
PROVIDERS: ATTEND Internal Medicine
DX: R05.1 Acute cough (principal); R50.9 Fever, unspecified; D50.9 Iron deficiency anemia, unspecified

== ENCOUNTER → 2025-06-08 | Outpatient (REF) | payer BC | LOC: M LAB REF 10:34 | PROVIDERS: ATTEND Surgery | DX: L72.0 Epidermal cyst (principal) ==

== ENCOUNTER 2025-08-24 09:51 | Day surgery (SDC) | payer BC ==
[~2025-08-24] VITALS: Ht 170.2 cm; Wt 82.3 kg
[~2025-08-24 09:51] MED LIST changes: +FLUT1BLS2 IH; +MAGN500T8 PO; +METO25TA4 PO; +PROB250C PO
[2025-08-24] MEDS ORDERED: LIDOCAINE 2% 100 MG/5 ML SDV (FOR ANES.) As Ordered ONE (11:20)
[2025-08-24 11:23] VITALS: TEMP 98.2
[2025-08-24 11:44] VITALS: BP 147/70; O2SAT 98
== END 2025-08-24 11:54 | disposition home or self-care (01) ==
LOC: M OPP 09:51
PROVIDERS: ATTEND Surgery
DX: K63.5 Polyp of colon (principal); D50.9 Iron deficiency anemia, unspecified; K29.70 Gastritis, unspecified, without bleeding; G47.30 Sleep apnea, unspecified; J45.909 Unspecified asthma, uncomplicated; Z95.5 Presence of coronary angioplasty implant and graft; Z86.73 Personal history of transient ischemic attack (TIA), and cerebral infarction without residual deficits; Z88.1 Allergy status to other antibiotic agents; Z79.51 Long term (current) use of inhaled steroids; Z79.899 Other long term (current) drug therapy; Z87.891 Personal history of nicotine dependence
CPT/HCPCS: 43239; 45380; 88305; J3010